=== PATIENT | female | born 1940 | race Caucasian/White ===

== ENCOUNTER 2016-08-17 08:22 | Observation (INO) | payer MEDICARE, OTHER ==
[~2016-08-17] VITALS: Ht 160 cm; Wt 72.5 kg
[2016-08-17] MEDS ORDERED: SOD CHLORIDE 0.9% 500 ML IV STA (08:46)
[2016-08-17 08:48] VITALS: TEMP 98.2
[2016-08-17] MEDS ORDERED: CRES10 PO (09:45)
[2016-08-17] MEDS ORDERED: LOSA50TA6 PO (09:46)
[2016-08-17] MEDS ORDERED: GABA300C16 PO (09:46)
[2016-08-17] MEDS ORDERED: CELE200C PO (09:46)
[2016-08-17] MEDS ORDERED: DICL100G37 TOP (09:47)
[2016-08-17] MEDS ORDERED: LEVO88TA42 PO (09:48)
[2016-08-17] MEDS ORDERED: FURO-110 PO (09:49)
[2016-08-17] MEDS ORDERED: ALPR0.5T6 PO (09:49)
[2016-08-17] MEDS ORDERED: COLC0.6T6 PO (09:49)
[2016-08-17 09:53] LABS: ADD SCAN DIFF NO
[2016-08-17 09:55] LABS: ABNORMAL IP MESSAGE 1; BASOPHILS % 0.3 % (0.0-2.0); EOSINOPHILS % 0.4 % (0.0-7.0); HEMATOCRIT 45.1 % (37.0-47.0); HEMOGLOBIN 14.5 g/dl (12.0-16.0); LYMPHOCYTES # 0.6 10^3/ul (0.8-2.9); LYMPHOCYTES % 7.6 % (15.0-51.0); MEAN CORPUSCULAR HEMOGLOBIN 29.7 pg (29.0-33.0); MEAN CORPUSCULAR HGB CONC 32.2 g/dl (32.0-37.0); MEAN CORPUSCULAR VOLUME 92.4 fl (82.0-101.0); MEAN PLATELET VOLUME 9.8 fl (7.4-10.4); MONOCYTE # 0.3 10^3/ul (0.3-0.9); MONOCYTES % 3.3 % (0.0-11.0); NEUTROPHIL # 6.6 10^3/ul (1.6-7.5); NEUTROPHILS % 88.3 % (39.0-77.0); PLATELET COUNT 212 10^3/UL (140-415); RED BLOOD COUNT 4.88 10^6/ul (4.20-5.40); RED CELL DISTRIBUTION WIDTH 12.8 % (11.5-14.5); WHITE BLOOD COUNT 7.5 10^3/ul (4.8-10.8)
--- NOTE | 2016-08-17 09:57 | RADRPT ---
PROCEDURE: XR Chest. CLINICAL INDICATION: Syncope TECHNIQUE: Single frontal view of the chest was obtained COMPARISON: None FINDINGS: The heart and mediastinum are within normal limits. The lungs are clear. There is no pleural effusion or pneumothorax. IMPRESSION: No definite abnormalities are identified. RPTAT:AAJJ Physician Hannah Date Time Electronically viewed and signed by Dean Roberts Physician on 08/17/2016 09:57 LENORA/
[2016-08-17 10:10] LABS: CHLORIDE 99 mmol/L (97-110); SODIUM 141 mmol/L (135-144)
[2016-08-17 10:12] LABS: CREATININE 0.67 mg/dl (0.44-1.00)
[2016-08-17 10:13] LABS: ANION GAP 19 (8-16); BLOOD UREA NITROGEN 13 mg/dl (7-20); CALCIUM 9.6 mg/dl (8.4-10.2); CARBON DIOXIDE 27 mmol/L (21-31); GLUCOSE 161 mg/dl (70-220)
[2016-08-17 10:22] LABS: INR 0.95; PROTIME 12.7 Sec (12.2-14.2)
[2016-08-17 10:29] LABS: TROPONIN-I < 0.012 ng/ml (0.00-0.12)
[2016-08-17] MEDS ORDERED: SOD CHLORIDE 0.9% 500 ML IV ONE (10:30)
[2016-08-17 10:41] LABS: ADD UMIC YES; URINE BILIRUBIN (Dip) NEGATIVE (NEGATIVE); URINE BLOOD (Dip) NEGATIVE (NEGATIVE); URINE COLOR LT. YELLOW (YELLOW); URINE GLUCOSE (Dip) NEGATIVE (NEGATIVE); URINE KETONES (Dip) NEGATIVE (NEGATIVE); URINE LEUKOCYTE ESTERASE (Dip) TRACE (NEGATIVE); URINE NITRITE (Dip) NEGATIVE (NEGATIVE); URINE TOTAL PROTEIN (Dip) NEGATIVE (NEGATIVE); URINE UROBILINOGEN (Dip) 0.2 E.U./dL (0.1-1.0)
--- NOTE | 2016-08-17 10:47 | ERA ---
ER Documentation Chief Complaint Date/Time DATE: 08/17/16 TIME: 10:42 Chief Complaint bib son for dizziness , vomiting , diarrhea since yesterday HPI 75-year-old female with a history of hypertension and hypothyroidism presenting to the ER with multiple episodes of nearly blacking out. She states that since yesterday she has had episodes where she feels very dizzy, her vision blacks out , she started sweating with associated nausea and vomiting. She denies any associated headache, chest pain, shortness of breath, fevers. She states that these episodes last a few minutes and self resolved. She denies any abdominal pain, dysuria, hematochezia, or melena. Vomit is nonbloody and nonbilious. ROS All systems reviewed and are negative except as per history of present illness. Medications Home Meds Reported Medications Alprazolam* (Alprazolam*) 0.5 Mg Tablet, 0.5 MG PO DAILY Y for ANXIETY, TAB 08/17/16 Furosemide* (Lasix*) 20 Mg Tablet, 20 MG PO DAILY, TAB 08/17/16 Colchicine* (Colcrys*) 0.6 Mg Tablet, 0.6 MG PO DAILY, TAB 08/17/16 Levothyroxine Sodium* (Levoxyl*) 88 Mcg Tablet, 88 MCG PO BEFORE BREAKFAST, #30 TAB 08/17/16 Diclofenac Sodium* (Voltaren* Gel) 1% -100 Gm Gel, 2 GM TOP QID, #1 TUB 08/17/16 Gabapentin* (Gabapentin*) 300 Mg Capsule, 300 MG PO BID, #60 CAP 08/17/16 Losartan Potassium* (Losartan Potassium*) 50 Mg Tablet, 50 MG PO DAILY, TAB 08/17/16 Celecoxib* (Celebrex*) 200 Mg Capsule, 200 MG PO DAILY, CAP 08/17/16 Rosuvastatin Calcium* (Crestor*) 10 Mg Tablet, 10 MG PO QHS, #30 TAB 08/17/16 Allergies Allergies: Coded Allergies: No Known Allergy (Unverified , 08/17/16) PMhx/Soc Medical and Surgical Hx: pt denies Surgical Hx Hx Cardiac Disorders: Yes (Hypertension) Hx Miscellaneous Medical Probl: Yes (Hyperlipidemia, hypothyroidism) Hx Alcohol Use: No Hx Substance Use: No Hx Tobacco Use: No Smoking Status: Never smoker FmHx Family History: No diabetes Physical Exam Vitals Vital Signs Date Time Temp Pulse Resp B/P Pulse Ox O2 Delivery O2 Flow Rate FiO2 08/17/16 10:21 79 22 139/69 98 Room Air 08/17/16 08:48 98.2 85 16 145/60 100 Room Air 08/17/16 08:24 98.2 87 16 158/70 98 Physical Exam Const: Well-appearing, no distress, nontoxic Head: Atraumatic Eyes: Normal Conjunctiva, PERRLA, no nystagmus, EOMI ENT: Dry mucous membranes, posterior oropharynx normal. External ears normal. No epistaxis Neck: Full range of motion. No meningismus. Resp: Clear to auscultation bilaterally Cardio: Regular rate and rhythm, no murmurs. 2+ distal pulses in all 4 extremities Abd: Soft, non tender, non distended. Normal bowel sounds Skin: No petechiae or rashes Back: No midline or flank tenderness Ext: No cyanosis, or edema Neur: Awake and alert and oriented 3, cranial nerves intact, strength and sensations intact in all 4 extremities, normal gait Psych: Normal Mood and Affect Result Diagram: 08/17/1691608/17/1617 Results 24 hrs Laboratory Tests Test 08/17/16 09:17 08/17/16 09:21 08/17/16 10:17 White Blood Count 7.510^3/ul Red Blood Count 4.8810^6/ul Hemoglobin 14.5g/dl Hematocrit 45.1% Mean Corpuscular Volume 92.4fl Mean Corpuscular Hemoglobin 29.7pg Mean Corpuscular Hemoglobin Concent 32.2g/dl Red Cell Distribution Width 12.8% Platelet Count 76227^3/UL Mean Platelet Volume 9.8fl Neutrophils % 88.3% Lymphocytes % 7.6% Monocytes % 3.3% Eosinophils % 0.4% Basophils % 0.3% Nucleated Red Blood Cells % 0.0/100WBC Neutrophils # 6.610^3/ul Lymphocytes # 0.610^3/ul Monocytes # 0.310^3/ul Eosinophils # 0.010^3/ul Basophils # 0.010^3/ul Nucleated Red Blood Cells # 0.010^3/ul Prothrombin Time 12.7Sec Prothrombin Time Ratio 1.0 INR International Normalized Ratio 0.95 Activated Partial Thromboplast Time 25.0Sec Sodium Level 141mmol/L Potassium Level 4.0mmol/L Chloride Level 99mmol/L Carbon Dioxide Level 27mmol/L Anion Gap 19 Blood Urea Nitrogen 13mg/dl Creatinine 0.67mg/dl Glucose Level 161mg/dl Calcium Level 9.6mg/dl Troponin I < 0.012ng/ml Bedside Glucose 148mg/dL Urine Color LT. YELLOW Urine Clarity CLEAR Urine pH 6.0 Urine Specific [place] 1.025 Urine Ketones NEGATIVE Urine Nitrite NEGATIVE Urine Bilirubin NEGATIVE Urine Urobilinogen 0.2 E.U./dL Urine Leukocyte Esterase TRACE Urine Microscopic RBC Pending Urine Microscopic WBC Pending Urine Hemoglobin NEGATIVE Urine Glucose NEGATIVE% Urine Total Protein NEGATIVE Current Medications Medications (Trade) Dose Ordered Sig/Jonathan Route PRN Reason Start Time Stop Time Status Last Admin Dose Admin Sodium Chloride 500 ml @ 500 mls/hr Q1H STAT IV 08/17/16 08:46 08/17/16 09:45 DC 08/17/16 10:11 Sodium Chloride (NS) 500 ml @ 500 mls/hr Q1H ONCE IV 08/17/16 10:30 08/17/16 11:29 08/17/16 10:47 Procedures/MDM EKG: Rate/Rhythm: Normal Sinus Rhythm QRS, ST, T-waves: No changes consistent w/ acute ischemia Impression: No evidence of ischemia or arrhythmia Labs show no significant abnormalities other than a mildly elevated anion gap, likely secondary to dehydration from vomiting. Troponin within normal limits Chest x-ray shows no acute abnormalities per radiology Patient presented with presyncopal symptoms. Vitals are stable. She is neurologically intact.EKG is nonischemic. Troponin is within normal limits. There is no evidence of sepsis. IV fluids were given without significant relief of her symptoms. Patient's pre-syncopal symptoms are unstable at this time and require inpatient workup. No evidence of PE or dissection at this time but occult ischemia or fatal dysrhythmia cannot be ruled out. Patient will be admitted to telemetry unit. Accepting Care Team: Current data and ongoing care discussed. Time: Time of admission Primary Provider: Agustin Consulting: None Outstanding Data: none Departure Diagnosis: Primary Impression: Pre-syncope Additional Impression: Nausea and vomiting Qualified Code: R11.2 - Non-intractable vomiting with nausea, unspecified vomiting type Condition: Fair HIEN BERRIOS MD August 17, 2016 10:47
[2016-08-17 11:26] LABS: BACTERIA,URINE RARE; URINE RBCS 0-2 /HPF (0)
[2016-08-17] MEDS ORDERED: ACETAMINOPHEN 325 MG TAB PO PRN ×2 (11:30→13:30)
[2016-08-17] MEDS ORDERED: ONDANSETRON 4 MG INJ IV PRN ×2 (11:30→13:30)
[2016-08-17 12:39] VITALS: Ht 160 cm; Wt 72.5 kg
[2016-08-17 12:55] VITALS: PULSE 84
[2016-08-17] MEDS ORDERED: morphine 2 MG INJ IV PRN (13:30)
[2016-08-17] MEDS ORDERED: NACL 0.9% 3 ML SYG IV SCH (13:30)
[2016-08-17] MEDS ORDERED: HYDROCODONE/APAP (5/325) TAB PO PRN (13:30)
[2016-08-17] MEDS ORDERED: ALPRAZOLAM 0.5 MG TAB PO PRN (13:30)
--- NOTE | 2016-08-17 14:08 | HP ---
DATE OF ADMISSION: 08/17/2016 CHIEF COMPLAINT: Dizziness, nausea, vomiting. HISTORY OF PRESENT ILLNESS: The patient is a 75-year-old female with a history of arthritis and hyp ertension, as well as hypothyroidism. The patient presents with nausea, vomiting and feedings of pr esyncope that started yesterday. The patient states that she felt as though she was going to pass o ut, but did not. She did not losing any consciousness, she did not actually fall. She states that she has had episodes similar to this in the past, but it usually occurs infrequently. The patient coburn s no cardiac history, no history of any strokes. She did state that she vomited earlier, but this h as now resolved. She states that she has not eaten for several hours now. She has no complaints at this time. She denies any dizziness when she is lying and does ambulate well normally. PAST MEDICAL HISTORY: Hypertension, arthritis, dyslipidemia. PAST SURGICAL HISTORY: Denies. HOME MEDICATIONS: See medical reconciliation list. ALLERGIES: NO KNOWN DRUG ALLERGIES. FAMILY HISTORY: Denies. SOCIAL HISTORY: Denies any alcohol, tobacco or drugs. REVIEW OF SYSTEMS: A 12-point review of systems was negative except for that stated in the HPI. PHYSICAL EXAMINATION: VITAL SIGNS: Temperature is 98.2, pulse 84, respiratory rate is 20, blood pressure is 150/84, satur ating 96% on room air. GENERAL: In no acute distress, alert and oriented. HEENT: Normocephalic, atraumatic. LUNGS: Clear to auscultation. CARDIOVASCULAR: Regular rate and rhythm. ABDOMEN: Nondistended, nontender, soft. EXTREMITIES: No clubbing, cyanosis, or edema. LABORATORIES: CBC within normal limits. Chemistry within normal limits. INR is 0.05. UA is ariana l. DIAGNOSTICS: Chest x-ray shows no acute abnormalities. ASSESSMENT AND PLAN: 1. Presyncope, likely secondary to nausea and vomiting, possibly from a viral syndrome. Now stable . Will treat with IV fluids. Will obtain a 2D echo and a carotid ultrasound. 2. Hypertension. Resume home medications. 3. Gout. Continue home colchicine. 4. Hypothyroidism. Continue home Synthroid. 5. Prophylaxis. SCDs. Dictated By: BRYANNA CROOK MD BS/MANOLO Conf#: [id number] DID#: [id number]
--- NOTE | 2016-08-17 14:58 | PDOCDIS ---
Discharge Instructions CONDITION Patient Condition: Good HOME CARE INSTRUCTIONS: Diet Instructions: Regular ACTIVITY: Activity Restrictions: Slowly Increase Activity FOLLOW UP/APPOINTMENTS Appointments F/U WITH YOUR PCP IN 1-2 WEEKS BRYANNA CROOK August 17, 2016 14:58
--- NOTE | 2016-08-17 16:10 | RADRPT ---
PROCEDURE: US Carotids. CLINICAL INDICATION: Dizziness TECHNIQUE: Multiple sonographic of the carotid arteries were obtained utilizing mccauley scale imaging . Color and Doppler imaging was performed. The images were reviewed on a PACS workstation. COMPARISON: No prior studies are available for comparison. FINDINGS: LocationRightLeft CCA94 cm/tth935 cm/sec Prox ICA98 cm/sec96 cm/sec Mid ICA65 cm/eid778 cm/sec Dist ICA72 cm/sec80 cm/sec CJU039 cm/iug864 cm/sec ICA/CCA1.00.9 Antegrade flow is seen within the vertebral arteries bilaterally. Mild plaque is noted in the left c arotid bulb. No hemodynamically significant stenosis or occlusion is identified. IMPRESSION: 1. No evidence for hemodynamically significant stenosis or occlusion. 2. Antegrade flow seen within the vertebral arteries bilaterally. Validated velocity measurements with angiographic measurements, velocity criteria are extrapolated f rom diameter data as defined by the Society of Radiologists in Ultrasound Consensus Conference (Radi ology 2003; 229; 340-346). This study does indirectly reference the measurement of the distal ICA d iameter as the denominator for stenosis measurement. RPTAT: QQ .Juan Rawls MD, MD Date Time Electronically viewed and signed by .Juan Rawls MD, on 08/17/2016 16:09 .R/
[2016-08-17 16:11] VITALS: BP 137/75; RESP 17
[2016-08-17 16:15] VITALS: PULSE 85
[2016-08-17] MEDS ORDERED: NON-FORMULARY/PATIENT OWN MED (Rosuvastatin Calcium* (Crestor*) 10 MG) PO SCH (21:00)
[2016-08-17] MEDS ORDERED: GABAPENTIN 300 MG CAP PO SCH (21:00)
[2016-08-17] MEDS ORDERED: ATORVASTATIN 40 MG TAB PO SCH (21:00)
--- NOTE | 2016-08-18 03:21 | DS ---
DATE OF ADMISSION: 08/17/2016 DATE OF DISCHARGE: 08/17/2016 DISCHARGE DIAGNOSES: 1. Presyncope, likely secondary to nausea and vomiting, now resolved. 2. Hypertension, stable. Continue home medications. 3. Gout. Continue home medications. 4. Hypothyroidism. Continue home medications. HOSPITAL COURSE: The patient is a 75-year-old female with a history of gout, hypertension, and hypo thyroidism. The patient presents with nausea, vomiting, feeling like she is going to pass out. The patient states that her symptoms had resolved when she arrived. She no longer complained of any na usea, vomiting. She was ambulating without any issues. Workup for syncope showed no significant et iology. The patient was felt to be stable for discharge. She wanted to go home. She no longer com plained of any symptoms. She states that she has no cardiac history in the past. No history of any strokes. She has no diabetes. Blood pressure was stable during his hospitalization. On the day o f discharge, the patient's vitals, labs, and physical exam were stable. She had no acute complaints . Questions were answered. CONDITION ON DISCHARGE: Stable. DISPOSITION: To home. MEDICATIONS: The patient will continue usual home medications. FOLLOWUP: The patient is to follow up with PCP in 1 to 2 weeks. Greater than 30 minutes was spent coordinating discharge of patient. Dictated By: BRYANNA CROOK MD BS/NTS Conf#: [id number] DID#: [id number]
[2016-08-18] MEDS ORDERED: FUROSEMIDE 20 MG TAB PO SCH (06:00)
[2016-08-18] MEDS ORDERED: LEVOTHYROXINE 88 MCG TAB PO SCH (07:00)
[2016-08-18] MEDS ORDERED: CELECOXIB 200 MG CAP PO SCH (09:00)
[2016-08-18] MEDS ORDERED: LOSARTAN 50 MG TAB PO SCH (09:00)
[2016-08-18] MEDS ORDERED: COLCHICINE 0.6 MG TAB PO SCH (09:00)
--- NOTE | 2016-08-18 17:39 | RADRPT ---
Echocardiogram Report Patient Name: BABATUNDE MCCARTHY Gender: Female Date: 1940 Study Date: 17-Aug-2016 Postal Worker: ADOLFO Location: I Ref. Physician: BRYANNA CROOK Quality: Adequate Procedures: Transthoracic echocardiogram with complete 2D, M-Mode, and doppler examination. Indications: Dizziness. 2D/M Mode Doppler Measurement Value Normal Ranges Measurement Value Normal Ranges AoR Diam MM 3.1 cm AV Peak Vinicius 1.3 m/sec ACS MM 1.8 cm AV Peak PG 7.2 mmHg LVIDd 2D 4.1 3.5 - 5.6 cm LVOT Peak Vinicius 1.1 m/sec LVIDs 2D 2.1 2.1 - 4.1 cm LVOT Peak PG 5.2 mmHg LVPWd 2D 0.9 0.6 - 1.1 cm MV E Peak Vniicius 0.6 m/sec IVSd 2D 1.0 0.6 - 1.1 cm MV A Peak Vinicius 0.9 m/sec EDV 2D 74.5 cm3 MV E/A 0.6 ESV 2D 9.9 cm3 MV Decel Time 203 msec LA Dimen 2D 3.5 2.3 - 4.0 cm MV Decel Calloway 3 MV E/A 0.6 Findings Left Ventricle: Normal left ventricular systolic function. Normal left ventricular cavity size. Normal left ventricular wall thickness. Ejection fraction is visually estimated at 60 %. Tissue Doppler/Mitral Doppler indices are consistent with impaired relaxation (Stage I diastolic dysfunction). Right Ventricle: Normal right ventricular size. Normal right ventricular systolic function. Left Atrium: There is mild enlargement of left atrium. Right Atrium: The right atrium is normal in size. Atrial Septum: Normal atrial septum. Mitral Valve: Normal appearance of the mitral valve. No mitral valve regurgitation is seen. Aortic Valve: Normal appearance of the aortic valve. No significant aortic stenosis or insufficiency. Tricuspid Valve: Normal appearance and function of the tricuspid valve with trace physiologic regurgitation. Unable to obtain RVSP due to minimal presence of tricuspid regurgitation. Pulmonic Valve: Pulmonic valve not well visualized. Pericardium: Normal pericardium with no significant pericardial effusion. Aorta: Normal aortic root. IVC: Normal size and normal respiratory collapse consistent with normal right atrial pressure. Pulmonary Artery: Not well visualized. Conclusions 1.Normal left ventricular systolic function. Normal left ventricular cavity size. Normal left ventricular wall thickness. Ejection fraction is visually estimated at 60 %. Tissue Doppler/Mitral Doppler indices are consistent with impaired relaxation (Stage I diastolic dysfunction). 2.No significant valvular stenosis or regurgitation seen. 3.Unable to obtain RVSP due to minimal presence of tricuspid regurgitation. RA pressure is 3 mmHg. Electronically Signed By: Abdirashid Jones 18-Aug-2016 17:37:58 -0700 Patient Name: BABATUNDE MCCARTHY Study Date: 17-Aug-2016 [id number]
== END 2016-08-17 17:05 | disposition home or self-care (01) ==
LOC: E/R 08:22 → MS4 12:19
PROVIDERS: ADMIT Internal Medicine; ATTEND Internal Medicine
DX: R55 Syncope and collapse (principal); I10 Essential (primary) hypertension; E78.5 Hyperlipidemia, unspecified; E03.9 Hypothyroidism, unspecified; M19.90 Unspecified osteoarthritis, unspecified site; M10.9 Gout, unspecified
CPT/HCPCS: 36415; 71010; 80048; 81001; 82962; 84484; 85025; 85610; 85730; 93005; 93306; 93880; 96361; 96374; 99285; G0378; J2405; J7040; 81003; 99217